=== PATIENT | male | born 1985 | race African-American/Black ===

== ENCOUNTER 2017-05-09 09:59 | Emergency (ER) | payer SELFPAY ==
[~2017-05-09] VITALS: Ht 180.3 cm; Wt 127.7 kg
[2017-05-09 10:07] VITALS: BP 133/97
== END 2017-05-09 11:50 | disposition left against medical advice (07) ==
LOC: EMS 10:01
DX: R06.02 Shortness of breath (principal); F17.210 Nicotine dependence, cigarettes, uncomplicated; Z53.21 Procedure and treatment not carried out due to patient leaving prior to being seen by health care provider

== ENCOUNTER 2017-06-17 11:16 | Emergency (ER) | payer OTHER ==
[~2017-06-17] VITALS: Ht 180.3 cm; Wt 128.2 kg
[2017-06-17 13:04] LABS: BASOPHILS # (AUTO) 0.04 K/uL (0.00-0.20); BASOPHILS % (AUTO) 0.6 % (0.0-2.0); EOSINOPHILS # (AUTO) 0.12 K/uL (0.00-0.70); HEMATOCRIT 47.4 % (41-53); HEMOGLOBIN 15.9 g/dL (13.5-17.5); LYMPHOCYTES # (AUTO) 1.7 K/uL (1.0-4.8); LYMPHOCYTES % (AUTO) 23.6 % (22.0-44.0); MEAN CORPUSCULAR HEMOGLOBIN 30.3 pg (26.0-34.0); MEAN CORPUSCULAR HGB CONC 33.5 G/dL (31.0-37.0); MEAN CORPUSCULAR VOLUME 91 fL (80-100); MONOCYTES # (AUTO) 0.7 K/uL (0.1-1.0); MONOCYTES % (AUTO) 9.7 % (2.0-9.0); NEUTROPHILS # (AUTO) 4.7 K/uL (1.8-7.7); NEUTROPHILS % (AUTO) 64.5 % (40.0-70.0); PLATELET COUNT (AUTO) 292 K/uL (150-450); RED BLOOD CELL COUNT(AUTO) 5.23 MIL/uL (4.50-5.90); RED CELL DISTRIBUTION WIDTH 13.5 % (11.5-14.5)
[2017-06-17 13:12] LABS: ANION GAP 7 mmol/L (8-16); CALCIUM, TOTAL 9.2 mg/dL (8.8-10.5); CARBON DIOXIDE 32 mmol/L (22-29); CHLORIDE 104 mmol/L (98-107); CREATININE 1.09 mg/dL (0.60-1.30); GLOMERULAR FILTR. RATE CALC > 60 mL/min (>60); GLUCOSE,RANDOM 93 mg/dL (70-110); POTASSIUM 3.6 mmol/L (3.5-5.1); SODIUM SERUM 143 mmol/L (136-145); UREA NITROGEN, BLOOD 16 mg/dL (7-18)
[2017-06-17 13:17] LABS: ALANINE AMINOTRANSFERASE 41 U/L (12-78); ALBUMIN 3.6 g/dL (3.4-5.0); ALKALINE PHOSPHATASE 59 U/L (46-116); ASPARTATE AMINOTRANSFERASE 23 U/L (15-37); BILIRUBIN,TOTAL 0.4 mg/dL (0.1-1.0); TOTAL PROTEIN, SERUM 7.3 g/dL (6.4-8.2)
[2017-06-17 13:48] LABS: AMPHET/METH SCREEN,URINE NEGATIVE (NEGATIVE); BARBITURATE SCREEN, URINE NEGATIVE (NEGATIVE); BENZODIAZEPINES SCREEN,URINE NEGATIVE (NEGATIVE); CANNABINOID SCREEN,URINE NEGATIVE (NEGATIVE); COCAINE SCREEN,URINE NEGATIVE (NEGATIVE); METHADONE SCREEN, URINE NEGATIVE (NEGATIVE); OPIATE SCREEN,URINE NEGATIVE (NEGATIVE)
[2017-06-17 13:49] LABS: PHENCYCLIDINE SCREEN,URINE NEGATIVE (NEGATIVE)
[2017-06-17 16:47] VITALS: BP 120/76
== END 2017-06-17 16:47 | disposition home or self-care (01) ==
LOC: EMS 11:17
DX: F20.9 Schizophrenia, unspecified (principal); F41.9 Anxiety disorder, unspecified; F17.210 Nicotine dependence, cigarettes, uncomplicated
CPT/HCPCS: 36415; 80053; 80307; 85025; 99284; 99406; G0480

== ENCOUNTER 2019-01-20 03:20 | Emergency (ER) | payer OTHER ==
[~2019-01-20] VITALS: Ht 182.9 cm; Wt 145.4 kg
[2019-01-20] MEDS ORDERED: RISP1 PO ×2 (03:39→04:16)
[2019-01-20] MEDS ORDERED: HTN medication PO (03:39)
[2019-01-20] MEDS ORDERED: TRAZ-252 PO (04:16)
[2019-01-20] MEDS ORDERED: CHL25 PO (04:16)
[2019-01-20] MEDS ORDERED: OMEP20 PO (04:16)
[2019-01-20] MEDS ORDERED: BENZ1TAB10 PO (04:16)
[2019-01-20 04:35] LABS: BASOPHILS % (AUTO) 1.2 % (0.0-2.0); EOSINOPHILS % (AUTO) 2.6 % (1.0-6.0); HEMATOCRIT 41.2 % (41-53); HEMOGLOBIN 13.9 g/dL (13.5-17.5); LYMPHOCYTES # (AUTO) 2.4 K/uL (1.0-4.8); LYMPHOCYTES % (AUTO) 28.3 % (22.0-44.0); MEAN CORPUSCULAR HEMOGLOBIN 29.7 pg (26.0-34.0); MEAN CORPUSCULAR HGB CONC 33.7 G/dL (31.0-37.0); MEAN CORPUSCULAR VOLUME 88 fL (80-100); MONOCYTES # (AUTO) 0.5 K/uL (0.1-1.0); MONOCYTES % (AUTO) 6.4 % (2.0-9.0); NEUTROPHILS # (AUTO) 5.2 K/uL (1.8-7.7); NEUTROPHILS % (AUTO) 61.5 % (40.0-70.0); PLATELET COUNT (AUTO) 310 K/uL (150-450); RED BLOOD CELL COUNT(AUTO) 4.68 MIL/uL (4.50-5.90); RED CELL DISTRIBUTION WIDTH 13.9 % (11.5-14.5)
[2019-01-20 04:53] LABS: ALANINE AMINOTRANSFERASE 51 U/L (12-78); ALBUMIN 3.3 g/dL (3.4-5.0); ALKALINE PHOSPHATASE 69 U/L (46-116); ANION GAP 7 mmol/L (8-16); ASPARTATE AMINOTRANSFERASE 24 U/L (15-37); BILIRUBIN,TOTAL 0.2 mg/dL (0.1-1.0); CARBON DIOXIDE 31 mmol/L (22-29); CHLORIDE 106 mmol/L (98-107); CREATININE 1.24 mg/dL (0.60-1.30); GLOMERULAR FILTR. RATE CALC > 60 mL/min (>60); GLUCOSE,RANDOM 108 mg/dL (70-110); LIPASE 108 U/L (73-393); POTASSIUM 3.5 mmol/L (3.5-5.1); SODIUM SERUM 144 mmol/L (136-145); TOTAL PROTEIN, SERUM 6.7 g/dL (6.4-8.2); UREA NITROGEN, BLOOD 17 mg/dL (7-18)
[2019-01-20] MEDS ORDERED: KETOROLAC TROMETHAMINE 60 MG/2 ML VIAL IM ONE (06:15)
[2019-01-20 07:13] LABS: APPEARANCE,URINE CLEAR (CLEAR); BILIRUBIN,URINE NEGATIVE (NEGATIVE); GLUCOSE, URINE (UA) NEGATIVE (NEGATIVE); KETONES,URINE TRACE mg/dL (NEGATIVE); LEUKOCYTE ESTERASE ,URINE NEGATIVE (NEGATIVE); NITRATE,URINE NEGATIVE (NEGATIVE); OCCULT BLOOD,URINE NEGATIVE (NEGATIVE); PROTEIN,URINE NEGATIVE (NEGATIVE)
[2019-01-20 07:25] VITALS: BP 137/83
== END 2019-01-20 07:32 | disposition home or self-care (01) ==
LOC: EMS 03:22
DX: R10.11 Right upper quadrant pain (principal); R10.12 Left upper quadrant pain; F20.9 Schizophrenia, unspecified; F17.210 Nicotine dependence, cigarettes, uncomplicated; Z79.899 Other long term (current) drug therapy
CPT/HCPCS: 36415; 71045; 76705; 80053; 81003; 83690; 84484; 85025; 93005; 96372; 99284; J1885

== ENCOUNTER 2022-04-28 19:57 | Emergency (ER) | payer OTHER ==
[~2022-04-28] VITALS: Ht 180.3 cm; Wt 123.2 kg
[~2022-04-28 19:57] MED LIST: BENZ1TAB96 PO; CHL25 PO; OMEP20 PO; RISP1TAB48 PO; TRAZ-252 PO
[2022-04-28] MEDS ORDERED: DIPH50 PO (21:54)
[2022-04-28] MEDS ORDERED: PRED-554 PO (21:54)
[2022-04-28] MEDS ORDERED: PredniSONE 20 MG TABLET PO ONE (22:00)
[2022-04-28] MEDS ORDERED: DiphenhydrAMINE HCL 50 MG/ML VIAL IM ONE (22:00)
[2022-04-28] MEDS ORDERED: FAMOTIDINE 20 MG TABLET PO ONE (22:00)
[2022-04-28 22:10] VITALS: BP 125/77
== END 2022-04-28 22:11 | disposition home or self-care (01) ==
LOC: EMS 19:58
DX: T78.40XA Allergy, unspecified, initial encounter (principal); F20.9 Schizophrenia, unspecified; F10.21 Alcohol dependence, in remission; F17.210 Nicotine dependence, cigarettes, uncomplicated; Z98.84 Bariatric surgery status; Z90.89 Acquired absence of other organs; X58.XXXA Exposure to other specified factors, initial encounter
CPT/HCPCS: 99283; 96372; J1200; J7512

== ENCOUNTER 2025-03-02 23:25 | Emergency (ER) | payer MEDICARE, OTHER ==
[~2025-03-02] VITALS: Ht 172.7 cm; Wt 95.0 kg
[~2025-03-02 23:25] MED LIST changes: +BENZ-247 PO; -BENZ1TAB96 PO; +DIPH50 PO; +OMEP-148 PO; -OMEP20 PO; +PRED-554 PO
[2025-03-02 23:31] VITALS: TEMP 98.2
[2025-03-03] MEDS: KETOROLAC TROMETHAMINE 60 MG/2 ML VIAL IM ONE (00:37)
[2025-03-03 01:09] LABS: CALCIUM, TOTAL 8.3 mg/dL (8.8-10.5); CREATININE 1.13 mg/dL (0.60-1.30); GLOMERULAR FILTR. RATE CALC > 60 mL/min (>60); GLUCOSE,RANDOM 97 mg/dL (70-110); SODIUM SERUM 144 mmol/L (136-145); UREA NITROGEN, BLOOD 14 mg/dL (7-18)
[2025-03-03 01:13] LABS: PLATELET COUNT (AUTO) 295 K/uL (150-450); RED BLOOD CELL COUNT(AUTO) 4.82 MIL/uL (4.50-5.90); RED CELL DISTRIBUTION WIDTH 14.8 % (11.5-14.5); WHITE BLOOD COUNT (AUTO) 6.4 K/uL (4.5-11.0)
[2025-03-03 01:19] LABS: TROPONIN I-HIGH SENSITIVITY 6 ng/L (<76)
[2025-03-03] MEDS ORDERED: AMLO2.5T96 PO (01:34)
[2025-03-03] MEDS ORDERED: IBUP-1492 PO (01:34)
[2025-03-03 01:38] VITALS: BP 155/92; PULSE 66; RESP 18; O2SAT 95
== END 2025-03-03 01:44 | disposition home or self-care (01) ==
LOC: EMS 23:25
DX: R07.89 Other chest pain (principal); I10 Essential (primary) hypertension; F20.9 Schizophrenia, unspecified; F17.210 Nicotine dependence, cigarettes, uncomplicated; Z98.84 Bariatric surgery status; Z90.89 Acquired absence of other organs; Z79.52 Long term (current) use of systemic steroids; Z79.899 Other long term (current) drug therapy
CPT/HCPCS: 99285; 80048; 84484; 85025; 36415; 71045; 93005; 96372; G0480; J1885

== ENCOUNTER 2025-08-01 10:09 | Emergency (ER) | payer MEDICARE, OTHER ==
[~2025-08-01] VITALS: Ht 180.3 cm; Wt 136.4 kg
[~2025-08-01 10:09] MED LIST changes: +AMLO2.5T96 PO; -DIPH50 PO; +DIPH50CA39 PO; +IBUP-1492 PO
[2025-08-01 10:16] VITALS: BP 139/96; TEMP 98.2
[2025-08-01] MEDS ORDERED: MIRT-149 PO (10:17)
[2025-08-01] MEDS ORDERED: RISP-32 PO (10:17)
[2025-08-01 10:22] LABS: COVID AG,FIA SOURCE NASAL SWAB
[2025-08-01] MEDS: ALBUTEROL SULFATE 2.5 MG/0.5 ML NEB SOLUTION NEB ONE (10:35)
[2025-08-01] MEDS: ALBUTEROL SULFATE HFA 90 MCG/PUFF 8 GM INHALER IH ONE (10:35)
[2025-08-01] MEDS: IPRATROPIUM BROMIDE 0.5 MG/2.5 ML NEB SOLUTION NEB ONE (10:35)
[2025-08-01 10:40] VITALS: PULSE 80; RESP 18; O2SAT 94
[2025-08-01 10:42] VITALS: PULSE 80; RESP 18; O2SAT 94
[2025-08-01 10:50] LABS: INFLUENZA TYPE A NEGATIVE FOR TYPE A (NEGATIVE); INFLUENZA TYPE B NEGATIVE FOR TYPE B (NEGATIVE); SARS-COV2 (COVID) ANTIGEN,FIA Negative (Negative)
[2025-08-01] MEDS: ACETAMINOPHEN 500 MG TABLET PO ONE (10:58)
[2025-08-01] MEDS ORDERED: PRED-554 PO (11:09)
[2025-08-01] MEDS ORDERED: AZIT-164 PO (11:09)
[2025-08-01] MEDS ORDERED: ACET-3385 PO (11:09)
[2025-08-01] MEDS: AZITHROMYCIN 500 MG TABLET PO ONE (11:28)
== END 2025-08-01 11:36 | disposition home or self-care (01) ==
LOC: EMS 10:09
DX: J18.9 Pneumonia, unspecified organism (principal); F20.9 Schizophrenia, unspecified; F17.210 Nicotine dependence, cigarettes, uncomplicated; Z90.89 Acquired absence of other organs; Z98.84 Bariatric surgery status; Z79.899 Other long term (current) drug therapy; Z20.822 Contact with and (suspected) exposure to COVID-19
CPT/HCPCS: 99284; 71045; 87426; 87804; 94640; J0456; J7512; J3535; J7613